=== PATIENT | male | born 1930 | race Caucasian/White ===

== ENCOUNTER 2019-06-23 18:27 | Inpatient (IN) | payer OTHER ==
[~2019-06-23] VITALS: Ht 172.7 cm; Wt 73.0 kg
--- NOTE | ~2019-06-23 | EKG ---
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
[2019-06-23 22:06] VITALS: BP 112/71
[2019-06-23] MEDS ORDERED: PROSCAR 5MG TABL5 M1 PO (23:34)
[2019-06-23] MEDS ORDERED: PRAVACHOL40 MG PO (23:35)
[2019-06-23] MEDS ORDERED: METFORMIN HCL500 M3 PO (23:37)
[2019-06-23] MEDS ORDERED: AMARYL2 M1 PO (23:38)
[2019-06-23] MEDS ORDERED: OMEPRAZOLE 20 M20 M1 PO (23:39)
[2019-06-23] MEDS ORDERED: ASA81BEC PO (23:40)
[2019-06-23] MEDS ORDERED: MICARDIS40 MG (23:40)
[2019-06-23] MEDS ORDERED: FARXIGA10 MG PO (23:41)
[2019-06-24] VITALS: BP 95/58
[2019-06-24 04:00] VITALS: BP 111/61
--- NOTE | 2019-06-24 04:36 | NUR ---
Pt is aox4, running a-flutter on telemetry, respirations are even and unlabored. Pt is not in acute distress at this time.
[2019-06-24 07:30] VITALS: BP 135/55
[2019-06-24 07:31] VITALS: BP 130/55
[2019-06-24 12:00] VITALS: BP 104/60
--- NOTE | 2019-06-24 14:41 | NUR ---
Pt is A&O. Resides at home with his dtr. Independent with ADLs. Pt states that he keeps his room clean, but dtr does majority of IADLs. Pt uses a walker at night when he gets up to use the restroom. No hx of HH or SNF. Goal is home at ak. Pt states that he may be having a cardioversion. Following.
--- NOTE | 2019-06-24 15:55 | NUR ---
ASSUMED CARE OF PT AT 0730. PT A&0X4, DENIES ANY PAIN OR SHORTNESS OF BREATH. TRACING AFLUTTER ON THE MARBLE AND GRANITE POLISHER THIS AM-CARDIZEM GTT INFUSING AT 5ML/HR. PT STARTED ON SOTALOL PER CARDIOLOGY. PT NOTED TO CONVERT AT APPROXIMATELY 1030 TO SINUS RHYTHM. EKG OBTAINED AND PLACED IN CHART. PROLONGED CA INTERVAL NOTED. SOTALOL DISCONTINUED AND PT TRANSITIONED TO PO CARDIZEM. BLOOD PRESSURE STABLE. CURRENTLY TRACING SR WITH FIRST DEGREE ON THE MARBLE AND GRANITE POLISHER. ON RA SAT UPPER 90'S. PT UP SBA TO BATHROOM. PROBABLE DISCHARGE HOME TOMORROW 06/25. AM ASSESSMENT CHARTED. MEDICATIONS PER SEP. PT REPOSITIONS SELF. HOURLY ROUNDING OBSERVED. BED IN LOW POSITION. CALL LIGHT WITHIN REACH. WILL CONTINUE PLAN OF CARE.
--- NOTE | 2019-06-24 16:59 | EKG ---
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: : 1930 Requested By: Lawson Vera Order Number: [id number] Thong MD: Ari Rausch Measurements Intervals [place] Rate: 95 P: SD: QRS: -63 QRSD: 101 T: -15 QT: 357 QTc: 449 Interpretive Statements Atrial flutter LAD, 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
[2019-06-24 20:00] VITALS: BP 130/70
[2019-06-25] VITALS: BP 119/62
[2019-06-25 04:00] VITALS: BP 131/62
--- NOTE | 2019-06-25 06:41 | NUR ---
Pt is aox4, running 1st degree AV block with PACs, respirations are even and unlabored. Pt is not in acute distress at this time. Will continue to monitor.
[2019-06-25 07:45] VITALS: BP 117/66
[2019-06-25 10:59] VITALS: BP 117/66
[2019-06-25] MEDS ORDERED: ELIQUIS5 MG PO (11:08)
[2019-06-25] MEDS ORDERED: DILTIAZEM ER180 M2 PO (11:10)
--- NOTE | 2019-06-25 11:29 | NUR ---
ASSUMED CARE OF PT AT 0730. PT SITTING UP IN THE CHAIR WAITING FOR BREAKFAST. FAMILY AT BEDSIDE. PT A&0X4, DENIES ANY PAIN OR SHORTNESS OF BREATH AT THIS TIME. TRACING SR WITH FIRST DEGREE ON THE MULTIMEDIA TEACHER. ON RA SAT UPPER 90'S. PT UP AD ZACHARY IN ROOM. PT GOAL FOR TODAY COMPLETE ECHO AND DISCHARGE PLANNING TO HOME. AM ASSESSMENT CHARTED. MEDICATIONS PER MAR. PT REPOSITIONS SELF. HOURLY ROUNDING OBSERVED. BED IN LOW POSITION. CALL LIGHT WITHIN REACH. WILL CONTINUE PLAN OF CARE.
--- NOTE | 2019-06-25 12:26 | NUR ---
PT COMPLETED ECHO. DISCHARGE ORDERS RECEIVED. DISCHARGE INSTRUCTIONS, CARE NOTES, SCRIPTS AND FOLLOW UP APPTS GIVEN TO PT. PT COMMUNICATES UNDERSTANDING OF DISCHARGE TEACHING. BOTH IV'S AND DIRECTOR OF RECREATION THERAPY REMOVED. PT DISCHARGED WITH ALL BELONGINGS AND PAPERWORK VIA WHEELCHAIR WITH NURSING STAFF TO SONS OWN PERSONAL VEHICLE.
--- NOTE | 2019-06-25 15:47 | EKG ---
[place] [address] ELECTROCARDIOGRAM REPORT Name: DEVIN MERAZ Room: [address] DIS IN M.R.#: [id number] Admission: 06/23/19 Attend Phys: Lawson Vera MD, F Discharge: 06/25/19 Date of : [birth year] Report #: [id number] THIS REPORT FOR: //name// [facility] Test Date: 2019-06-24 Test Time: 12:12:03 Pat Name: DEVIN MERAZ Department: Room: [address] Gender: M Doughmaker: : 1930 Requested By: Lawson Vera Order Number: [id number] Thong MD: Maciel Mo Measurements Intervals [place] Rate: 78 P: 84 DC: 300 QRS: -1 QRSD: 105 T: 5 QT: 392 QTc: 447 Interpretive Statements Sinus rhythm Atrial premature complexes Prolonged [place] interval Compared to ECG 06/24/2019 08:47:06 Atrial premature complex(es) now present First degree AV block now present Atrial flutter no longer present Myocardial infarct finding no longer present Electronically Signed On 06-25-2019 15:47:28 TUBE CLEANER by Maciel Mo [email or web address] <ELECTRONICALLY SIGNED> By: Maciel Mo MD, [facility] 06/25/19 1547 1212 1212 Maciel Mo MD, [facility] /EPI
--- NOTE | 2019-06-25 15:51 | 2DMMODE ---
[place] [address] 2 D/M-MODE ECHOCARDIOGRAM Name: DEVIN MERAZ Room: [address] IN .Rishabh.#: [id number] Admission: 06/23/19 Attend Phys: Lawson Vera MD Discharge: 06/25/19 Date of : [birth year] Date of Service: 06/25/19 1551 Report #: [id number] THIS REPORT FOR: //name// APPROVED REPORT Study performed: 06/25/2019 10:39:18 EXAM: Comprehensive 2D, Doppler, and color-flow Echocardiogram Patient Location: In-Patient Room #: [facility] Status: routine BSA: 1.86 HR: 67 bpm BP: 117/66 mmHg Rhythm: NSR Other Information Study Quality: Good Indications Atrial Fibrillation 2D Dimensions IVSd: 6.02 (7-11mm) LVOT Diam: 18.55 (18-24mm) LVDd: 52.84 mm PWd: 9.22 (7-11mm) Ascending Ao: 32.26 (22-36mm) LVDs: 31.20 (25-40mm) Aortic Root: 30.18 mm Volumes Left Atrial Volume (Systole) LA ESV Index: 34.90 mL/m2 Aortic Valve AoV Peak Benigno.: 1.49 m/s AO Peak Gr.: 8.89 mmHg LVOT Max P.30 mmHg AO Mean Gr.: 5.14 mmHg LVOT Mean P.31 mmHg LVOT Max V: 0.76 m/s AO V2 VTI: 32.99 cm LVOT Mean V: 0.54 m/s GRAEME (VTI): 1.51 cm2 LVOT V1 VTI: 18.47 cm Mitral Valve E/A Ratio: 1.37 MV Decel. Time: 165.76 ms MV E Max Benigno.: 1.09 m/[place] [address] 2 D/M-MODE ECHOCARDIOGRAM Name: DEVIN MERAZ Room: [address] IN M.R.#: [id number] Admission: 06/23/19 Attend Phys: Lawson Vera MD Discharge: 06/25/19 Date of : [birth year]/20/[birth year] Date of Service: 06/25/19 1551 Report #: [id number] MV PHT: 48.07 ms MVA (PHT): 4.58 cm2 TDI E/Lateral E': 9.08 E/Medial E': 15.57 Medial E' Benigno.: 0.07 m/s Lateral E' Benigno.: 0.12 m/s Pulmonary Valve PV Peak Benigno.: 0.92 m/s PV Peak Gr.: 3.38 mmHg Tricuspid Valve RAP Estimate: 5.00 mmHg TR Peak Gr.: 26.35 mmHg RVSP: 31.00 mmHg PA Pressure: 31.00 mmHg Left Ventricle The left ventricle is normal size. There is normal LV segmental wall motion. There is normal left ventricular wall thickness. Left ventricular systolic function is normal. LVEF is 55-60%. Left ventricular filling pattern is normal for age. Right Ventricle Right ventricle is moderately dilated. The right ventricular systolic function is normal. Atria Left atrium is mildly dilated. Right atrium is moderately dilated. Aortic Valve Mild to moderate aortic valve sclerosis. Trace aortic regurgitation. Mild aortic stenosis. Mitral Valve The mitral valve is normal in structure. Trace mitral regurgitation. No evidence of mitral valve stenosis. Tricuspid Valve The tricuspid valve is normal in structure. Mild tricuspid regurgitation. Mild pulmonary hypertension. Pulmonic Valve The pulmonary valve is normal in structure. [place] [address] 2 D/M-MODE ECHOCARDIOGRAM Name: DEVIN MERAZ Room: [address] IN ..#: [id number] Admission: 06/23/19 Attend Phys: Lawson Vera MD Discharge: 06/25/19 Date of : [birth year] Date of Service: 06/25/19 1551 Report #: [id number] Great Vessels The aortic root is normal in size. IVC is normal in size and collapses >50% with inspiration. Pericardium There is no pericardial effusion. <Conclusion> The left ventricle is normal size. There is normal left ventricular wall thickness. Left ventricular systolic function is normal. LVEF is 55-60%. Left ventricular filling pattern is normal for age. Right ventricle is moderately dilated. Left atrium is mildly dilated. Right atrium is moderately dilated. Mild to moderate aortic valve sclerosis. Trace aortic regurgitation. Mild aortic stenosis. Trace mitral regurgitation. Mild tricuspid regurgitation. Mild pulmonary hypertension. IVC is normal in size and collapses >50% with inspiration. <ELECTRONICALLY SIGNED> By: Ari Rausch MD, FACC 06/25/19 1551 155 155 Ari Rausch MD, FACC /INF
--- NOTE | 2019-06-25 16:00 | EKG ---
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: : 1930 Requested By: Lawson Vera Order Number: [id number] Reading MD: Maciel Mo Measurements Intervals [place] Rate: 61 P: 8 [place]: 292 QRS: 3 QRSD: 104 T: 4 QT: 424 QTc: 427 Interpretive Statements Sinus rhythm Atrial premature complexes Prolonged [place] interval Possible anteroseptal infarct, old Compared to ECG 06/24/2019 08:47:06 Atrial premature complex(es) now present First degree AV block now present Atrial flutter no longer present Myocardial infarct finding still present Electronically Signed On 06-25-2019 15:59:44 HEAD ORTHOPEDIC TEAM PHYSICIAN by Maciel Mo [email or web address] <ELECTRONICALLY SIGNED> By: Maciel Mo MD, FACC 06/25/19 1559 0840 0840 Maciel Mo MD, FAC /EPI
== END 2019-06-25 12:30 | disposition home or self-care (01) | DRG 309 ==
LOC: M.2W 18:27
PROVIDERS: ADMIT Internal Medicine Cardiovascular Disease
DX: I48.91 Unspecified atrial fibrillation (principal); D68.69 Other thrombophilia; I48.92 Unspecified atrial flutter; E11.9 Type 2 diabetes mellitus without complications; I10 Essential (primary) hypertension; K21.9 Gastro-esophageal reflux disease without esophagitis; I25.10 Atherosclerotic heart disease of native coronary artery without angina pectoris; I35.0 Nonrheumatic aortic (valve) stenosis; E78.5 Hyperlipidemia, unspecified; Z88.0 Allergy status to penicillin; Z79.899 Other long term (current) drug therapy; Z95.1 Presence of aortocoronary bypass graft; Z79.84 Long term (current) use of oral hypoglycemic drugs; Z79.82 Long term (current) use of aspirin; Z87.891 Personal history of nicotine dependence